=== PATIENT | female | born 1995 | race Caucasian/White ===

== ENCOUNTER 2018-01-30 08:59 | Emergency (ER) | payer BC, MEDICAID ==
[~2018-01-30] VITALS: Ht 157.5 cm; Wt 59.0 kg
[~2018-01-30 08:59] MED LIST: ALBU8.5H4 IH; CYCL-120 PO; EPIN0.3P3 IM; EPIN0.3P8 IM; LEVA15HF4 IH; NAPR-56 PO; ONDA8TAB9 PO; PRED10TA PO; [UNRECOGNIZED DRUG - CODE] PO
[2018-01-30 09:13] VITALS: BP 116/71
[2018-01-30] MEDS ORDERED: TAM75C PO (09:32)
[2018-01-30] MEDS ORDERED: ibuprofen tablet 400 MG TABLET PO ONE (09:35)
== END 2018-01-30 10:16 | disposition home or self-care (01) ==
LOC: ER 08:59
DX: J11.1 Influenza due to unidentified influenza virus with other respiratory manifestations (principal); J45.909 Unspecified asthma, uncomplicated; G89.29 Other chronic pain; F15.10 Other stimulant abuse, uncomplicated; F11.10 Opioid abuse, uncomplicated; Z88.0 Allergy status to penicillin; Z88.2 Allergy status to sulfonamides; Z88.8 Allergy status to other drugs, medicaments and biological substances; Z79.899 Other long term (current) drug therapy; Z91.010 Allergy to peanuts
CPT/HCPCS: 99283

== ENCOUNTER 2019-03-16 07:03 | Emergency (ER) | payer BC, MEDICAID ==
[~2019-03-16] VITALS: Ht 160 cm; Wt 61.3 kg
[2019-03-16 07:15] VITALS: BP 129/83
--- NOTE | 2019-03-16 07:17 | NUR ---
Patient ambulated into ED with handcuffs on and escorted by [employer]. Patient calm and cooperative.
[2019-03-16] MEDS ORDERED: DOXY1TAB3 PO (07:23)
[2019-03-16] MEDS ORDERED: ondansetron 4mg rapidly disintigrating tab PO ONE (07:25)
== END 2019-03-16 07:34 | disposition home or self-care (01) ==
LOC: ER 07:04
DX: O21.9 Vomiting of pregnancy, unspecified (principal); O99.511 Diseases of the respiratory system complicating pregnancy, first trimester; O26.891 Other specified pregnancy related conditions, first trimester; J45.909 Unspecified asthma, uncomplicated; G89.29 Other chronic pain; F11.90 Opioid use, unspecified, uncomplicated; Z3A.01 Less than 8 weeks gestation of pregnancy; Z88.0 Allergy status to penicillin; Z88.2 Allergy status to sulfonamides; Z88.1 Allergy status to other antibiotic agents; Z91.010 Allergy to peanuts; Z79.899 Other long term (current) drug therapy
CPT/HCPCS: 99283

== ENCOUNTER 2019-09-06 00:25 | Emergency (ER) | payer BC, MEDICAID ==
[~2019-09-06] VITALS: Ht 162.6 cm; Wt 84.1 kg
[~2019-09-06 00:25] MED LIST changes: +DOXY1TAB3 PO
[2019-09-06 01:03] VITALS: BP 130/77
== END 2019-09-06 01:06 ==
LOC: ER 00:26
DX: O9A.212 Injury, poisoning and certain other consequences of external causes complicating pregnancy, second trimester (principal); F11.90 Opioid use, unspecified, uncomplicated; O26.892 Other specified pregnancy related conditions, second trimester; G89.29 Other chronic pain; O99.512 Diseases of the respiratory system complicating pregnancy, second trimester; J45.909 Unspecified asthma, uncomplicated; Z3A.24 24 weeks gestation of pregnancy; Z88.0 Allergy status to penicillin; Z88.2 Allergy status to sulfonamides; Z88.1 Allergy status to other antibiotic agents; Z91.010 Allergy to peanuts; Z79.899 Other long term (current) drug therapy
CPT/HCPCS: 99284

== ENCOUNTER 2021-01-19 13:37 | Outpatient (CLI) | payer MEDICAID | END 2021-01-19 23:59 | disposition home or self-care (01) | LOC: RAD 13:37 | PROVIDERS: ATTEND Obstetrics & Gynecology | DX: I49.8 Other specified cardiac arrhythmias (principal); F11.20 Opioid dependence, uncomplicated | CPT/HCPCS: 93005 ==